=== PATIENT | male | born 1965 | race Caucasian/White ===

== ENCOUNTER → 2020-12-11 11:31 | Outpatient (BNVA) | payer MEDICAID, SELFPAY | PROVIDERS: Visit Provider Family Medicine | DX: K74.60 Unspecified cirrhosis of liver (principal); M25.512 Pain in left shoulder; M25.552 Pain in left hip; M25.572 Pain in left ankle and joints of left foot; M25.562 Pain in left knee; K58.9 Irritable bowel syndrome, unspecified; G89.4 Chronic pain syndrome; J44.9 Chronic obstructive pulmonary disease, unspecified; Z13.6 Encounter for screening for cardiovascular disorders | CPT/HCPCS: 73030; 73502; 73562; 73610; 80053; 80061; 85025 ==

== ENCOUNTER → 2021-02-04 12:56 | Outpatient (BNVA) | payer MEDICAID, SELFPAY | PROVIDERS: Referring Provider Family Medicine; Visit Provider Specialist | DX: M16.12 Unilateral primary osteoarthritis, left hip (principal); M25.552 Pain in left hip | CPT/HCPCS: 73502 ==

== ENCOUNTER → 2021-02-06 15:08 | Outpatient (BNVA) | payer MEDICAID, SELFPAY | PROVIDERS: Visit Provider Internal Medicine | DX: K74.60 Unspecified cirrhosis of liver (principal); F10.20 Alcohol dependence, uncomplicated | CPT/HCPCS: 80053; 82105; 86705; 86706; 86709; 86803; 87340 ==

== ENCOUNTER → 2021-02-20 10:29 | Outpatient (BNVA) | payer MEDICAID, SELFPAY | PROVIDERS: PCP Family Medicine; Referring Provider Specialist; Visit Provider Anesthesiology Pain Medicine | DX: M16.12 Unilateral primary osteoarthritis, left hip (principal); M47.816 Spondylosis without myelopathy or radiculopathy, lumbar region; M79.605 Pain in left leg; Z87.898 Personal history of other specified conditions; K74.60 Unspecified cirrhosis of liver; F10.20 Alcohol dependence, uncomplicated; F17.210 Nicotine dependence, cigarettes, uncomplicated | CPT/HCPCS: 99204 ==

== ENCOUNTER 2021-02-26 12:31 | Outpatient (CLI) | payer MEDICAID, SELFPAY ==
--- NOTE | 2021-02-26 13:00 | MR_ITS ---
WS: [id number] MRI LUMBAR SPINE NONCONTRAST HISTORY: M54.9 - Dorsalgia, unspecified COMPARISON: None available. TECHNIQUE: Sagittal and axial multisequence imaging is submitted. Mild anterior wedging of T12 without edema. Posterior lumbar alignment are otherwise normal. Disc spaces and vertebral body heights are well-preserved. Conus terminates normally at L1-2 disc level. T11-12: Central disc protrusion with mild deformity of the ventral thoracic cord. No high-grade steno sis. L1-L2: Mild annular disc bulging and ligamentum flavum hypertrophy. Mild bilateral foraminal stenosis . L2-L3: Mild annular disc bulge. Annular fissure in the LEFT foramen. Moderate facet joint arthritis a nd ligamentum flavum hypertrophy. Degenerative disc and facet arthritis causing a mild central, bilat eral subarticular and foraminal stenosis. L3-L4: Moderate annular disc bulging with ligamentum flavum hypertrophy and facet arthritis. Mild saira ateral subarticular recess stenosis. L4-L5: Diffuse annular disc bulging with fissures in the LEFT foraminal disc. Moderate ligamentum fla vum and facet arthritis. Mild bilateral subarticular recess stenosis. L5-S1: Mild annular disc bulging. Disc contacts the S1 nerve roots but no displacement. No high-grade stenosis. LEFT renal cyst measures 1.3 cm. MR/MR lumbar spine wo con* [id number] IMPRESSION: 1. Mild central, bilateral subarticular recess and foraminal stenosis at L2-3. 2. Mild bilateral subarticular recess stenosis at L3-4 and L4-5. 3. Mild disc contact in the S1 nerve roots bilaterally at L5-S1 but no displac ement. 4. Mild bilateral foraminal stenosis at L1-2. 5. Small central disc protrusion at T11-12 with mild contact on the ventral co rd.
== END 2021-02-26 12:32 | disposition home or self-care (01) ==
LOC: RADSHAW 12:32
PROVIDERS: PCP Family Medicine; Visit Provider Orthopaedic Surgery
DX: M48.061 Spinal stenosis, lumbar region without neurogenic claudication (principal); M51.24 Other intervertebral disc displacement, thoracic region
CPT/HCPCS: 72148

== ENCOUNTER 2021-02-26 12:32 | Outpatient (CLI) | payer MEDICAID, SELFPAY ==
--- NOTE | 2021-02-26 12:52 | MR_ITS ---
WS: [id number] MRI LEFT HIP without CONTRAST. COMPARISON: None Multiplanar, multisequence imaging is performed without contrast. There is a large amount of edema throughout the LEFT femoral head extending into the femoral neck and proximal femur. Severe narrowing of the LEFT hip joint. Loss of the hip joint and loss of cartilage. There is also small amount of edema along the LEFT acetabulum. No fracture is identified. No collaps e of the hip at this time. There are a few serpiginous line suggesting avascular necrosis. No fragmen tation. There is a very small amount of edema within the superior RIGHT acetabulum. SI joints are negative. MR/MR hip LT wo con* [id number] IMPRESSION: 1. Severe degenerative changes at the LEFT hip joint with marrow edema extendi ng in throughout the femoral head and neck. 2. Small amount of marrow edema both sides of the joint space LEFT hip. 3. 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
== END 2021-02-26 12:33 | disposition home or self-care (01) ==
LOC: RADSHAW 12:33
PROVIDERS: PCP Family Medicine; Visit Provider Specialist
DX: M16.12 Unilateral primary osteoarthritis, left hip (principal); R60.0 Localized edema
CPT/HCPCS: 72110; 73721

== ENCOUNTER → 2021-03-06 14:04 | Outpatient (BNVA) | payer MEDICAID, SELFPAY | PROVIDERS: PCP Family Medicine; Visit Provider Internal Medicine | DX: B19.20 Unspecified viral hepatitis C without hepatic coma (principal); B18.2 Chronic viral hepatitis C | CPT/HCPCS: 87522; 87902 ==

== ENCOUNTER → 2021-03-11 14:47 | Outpatient (BNVA) | payer MEDICAID, SELFPAY | PROVIDERS: PCP Family Medicine; Visit Provider Anesthesiology Pain Medicine | DX: M25.552 Pain in left hip (principal); M16.9 Osteoarthritis of hip, unspecified; F17.210 Nicotine dependence, cigarettes, uncomplicated | CPT/HCPCS: 20610; 77002; J1030; J3490 ==

== ENCOUNTER 2021-04-24 10:09 | Outpatient (CLI) | payer MEDICAID, SELFPAY ==
--- NOTE | 2021-04-24 10:17 | MR_ITS ---
WS: [id number] MRI ABDOMEN without CONTRAST. COMPARISON: None Multiplanar, multisequence imaging is performed without contrast. Patient refused IV contrast. Mild heterogeneity within the liver. The surface of the liver is normal. No nodularity or mass identi fied. The caudate lobe is not significantly enlarged nor is the LEFT lateral segment. No bile duct di latation. Gallbladder is normal. Pancreas is top normal size at 13.9 cm in length. Bilateral renal cy sts. The largest in the upper pole of the LEFT kidney measures 2.4 x 2.1 cm. There is an additional s maller cyst in the lower pole the LEFT kidney. No adrenal mass. No bile duct dilatation. The pancreas is normal size. Normal pancreatic duct size. No ascites. No pleural effusion. MR/MR abdomen wo con [id number] IMPRESSION: 1. No MRI evidence for cirrhosis. No enhancing masses within the liver. 2. Spleen is top normal size at 13.9 cm in length. 3. Bilateral renal cysts. 4. No ascites.
== END 2021-04-24 10:10 | disposition home or self-care (01) ==
PROVIDERS: PCP Family Medicine; Visit Provider Internal Medicine
DX: R76.8 Other specified abnormal immunological findings in serum (principal); Q61.02 Congenital multiple renal cysts; M47.816 Spondylosis without myelopathy or radiculopathy, lumbar region; M51.36 Other intervertebral disc degeneration, lumbar region; M51.16 Intervertebral disc disorders with radiculopathy, lumbar region; M16.12 Unilateral primary osteoarthritis, left hip; M79.605 Pain in left leg; K74.60 Unspecified cirrhosis of liver; F10.20 Alcohol dependence, uncomplicated; Z87.898 Personal history of other specified conditions; F17.210 Nicotine dependence, cigarettes, uncomplicated
CPT/HCPCS: 74181; 99214

== ENCOUNTER → 2021-05-06 12:59 | Outpatient (BNVA) | payer MEDICAID, SELFPAY | PROVIDERS: PCP Family Medicine; Visit Provider Anesthesiology Pain Medicine | DX: M48.062 Spinal stenosis, lumbar region with neurogenic claudication (principal); F17.210 Nicotine dependence, cigarettes, uncomplicated | CPT/HCPCS: 64483; 64484; J1100; J3490 ==

== ENCOUNTER → 2021-05-20 12:56 | Outpatient (BNVA) | payer MEDICAID, SELFPAY | PROVIDERS: PCP Family Medicine; Visit Provider Anesthesiology Pain Medicine | DX: M48.062 Spinal stenosis, lumbar region with neurogenic claudication (principal); F17.210 Nicotine dependence, cigarettes, uncomplicated | CPT/HCPCS: 64483; 64484; J1100; J3490 ==

== ENCOUNTER → 2021-06-14 10:49 | Outpatient (BNVA) | payer MEDICAID, SELFPAY | PROVIDERS: PCP Family Medicine; Visit Provider Internal Medicine | DX: B19.20 Unspecified viral hepatitis C without hepatic coma (principal) | CPT/HCPCS: 87522 ==

== ENCOUNTER → 2021-07-03 15:19 | Outpatient (BNVA) | payer MEDICAID, SELFPAY | PROVIDERS: PCP Family Medicine; Visit Provider Internal Medicine | DX: B19.20 Unspecified viral hepatitis C without hepatic coma (principal) | CPT/HCPCS: 80053; 87522 ==

== ENCOUNTER → 2021-11-27 10:30 | Outpatient (BNVA) | payer MEDICAID, SELFPAY | PROVIDERS: PCP Family Medicine; Visit Provider Anesthesiology Pain Medicine | DX: M79.605 Pain in left leg (principal); F17.210 Nicotine dependence, cigarettes, uncomplicated; M48.062 Spinal stenosis, lumbar region with neurogenic claudication; M16.12 Unilateral primary osteoarthritis, left hip; M47.816 Spondylosis without myelopathy or radiculopathy, lumbar region; F10.20 Alcohol dependence, uncomplicated; Z87.898 Personal history of other specified conditions; K74.60 Unspecified cirrhosis of liver; M51.36 Other intervertebral disc degeneration, lumbar region; M51.16 Intervertebral disc disorders with radiculopathy, lumbar region | CPT/HCPCS: 99214 ==

== ENCOUNTER → 2021-12-24 13:30 | Outpatient (BNVA) | payer MEDICAID, SELFPAY | PROVIDERS: PCP Family Medicine; Visit Provider Anesthesiology Pain Medicine | DX: F17.210 Nicotine dependence, cigarettes, uncomplicated (principal); M54.16 Radiculopathy, lumbar region; M48.062 Spinal stenosis, lumbar region with neurogenic claudication | CPT/HCPCS: 64483; 64484; J1100; J3490 ==

== ENCOUNTER → 2022-01-09 11:00 | Outpatient (BNVA) | payer MEDICAID, SELFPAY | PROVIDERS: PCP Family Medicine; Visit Provider Anesthesiology Pain Medicine | DX: M48.062 Spinal stenosis, lumbar region with neurogenic claudication (principal); M47.816 Spondylosis without myelopathy or radiculopathy, lumbar region; M51.16 Intervertebral disc disorders with radiculopathy, lumbar region; M51.36 Other intervertebral disc degeneration, lumbar region; M79.605 Pain in left leg; F17.210 Nicotine dependence, cigarettes, uncomplicated; M16.12 Unilateral primary osteoarthritis, left hip; Z87.898 Personal history of other specified conditions | CPT/HCPCS: 72110; 99204; 99214 ==

== ENCOUNTER 2022-02-07 06:47 | Day surgery (SDC) | payer MEDICAID, SELFPAY ==
[2022-02-03 09:52] VITALS: BMI 26.4
--- NOTE | 2022-02-03 10:17 | P.ANESASSM_ITS ---
Pre-Anesthetic Assessment Height/Weight: Height 1.65 m Weight 72.121 kg Preop Diagnosis: Lumbar radiculopathy Operation Date: 02/07/22 08:40 Proposed Procedures p Lumbar Spine Decompression L2/3 L3/4 25526/89110/M48.062(Left) - Homer Madsen DO Familial anesthetic complications: None Social Tobacco and No alcohol Exam alert, oriented x 3 and regular rate & rhythm Diminished b/l Airway Submandibular: within normal limits Cervical ROM: within normal limits Mallampati: Class III Dentition: false Pulmonary Denies asthma, COPD, TINO SOB with flight of stairs, no CP CV/HEM Denies HTN, CAD, stents, VA, CHF None reported Hepatic Cirrhosis and Hepatitis (C and B, cured for hepatitis C per patient ) Elevated alpha-fetoprotein AST, ALT normalized after treatment for hepatitis C in 2020 GI None reported Metabolic None reported Musc/skel Lower Back Pain and Osteoarthritis/DJD Neuropsych Neuropathy Denies hx of strokes Hx of ETOH withdraw seizure, no longer drinks ETOH Anesthetic Plan ASA status: 3 Anesthesia: Anesthesia Evaluation and General Other: We discussed risk and benefits of general anesthesia including PONV, sore throat (sometimes severe), corneal abrasion, positioning and peripheral nerve injuries, life threatening allergic reaction, post operative ICU admission requiring p rolonged intubation, aspiration, stroke, heart attack, , permanent blindness, and rare incidences of recall. Patient consents to proceed with general anesthesia. GETA, possible arterial line. Discussed transfusion if necessary. Risk of > 500 ml blood loss (7ml/kg in children): No Medications/Allergies Home Medications Medication Instructions Recorded Confirmed Last Taken Type tizanidine 2 mg tablet 2 mg PO TID PRN muscle spasticity 10/31/21 02/03/22 Unknown Rx 30 days #90 tabs celecoxib 200 mg capsule (Celebrex) 200 mg PO DAILY #30 caps 01/09/22 02/03/22 Unknown Rx pregabalin 150 mg capsule 150 mg PO TID 30 days #90 caps 01/27/22 02/03/22 Unknown Rx Allergies Allergy/AdvReac Type Severity Reaction Status Date / Time acetaminophen [From Tylenol] Allergy Intermediate Unknown Verified 02/03/22 09:46 REPLACED BY [facility] Anesthesia Medical History Advanced cirrhosis of liver Surgical History History of appendectomy Family History Father Cancer Social History Smoking and tobacco status: current every day smoker cigarettes Packs smoked per day: 2 Years cigarettes smoked: 40 Alcohol intake: former Year of sobriety/quit date alcohol: 11/21 History of recent travel: No Data Anesthesia Cardiac Studies: No Data to Display
[2022-02-07] VITALS (12 sets, daily range): BP systolic 101–136; BP diastolic 59–85; PULSE 60–87; RESP 14–22; TEMP 36.2–36.7; O2SAT 92–100
--- NOTE | 2022-02-07 | SCC_ITS ---
Procedure: 1. L2/3 laminectomy with partial facetectomy 2. L3/4 laminectomy with partial facetectomy 18.1 seconds of fluoroscopic guidance, for a cumulative dose of 5.0 mGy, was provided to Dr. Madsen by the radiology department. C-arm images of the lumbar spine were saved for the patient's permanent record. [facility]
--- NOTE | 2022-02-07 | XR_ITS ---
WS: [id number] XR lumbar spine 1V [id number] REASON FOR EXAM: Left-sided L2-L3 L3-L4 decompression FINDINGS: Initially surgical device overlying the left L2-L3 disc space and subsequently overlying the left L3- L4 disc space. XR/XR lumbar spine 1V [id number] IMPRESSION: Intraoperative lumbar level localization as above.
--- NOTE | 2022-02-07 06:13 | P.ANESUD_ITS ---
Pre-Anesthetic Update Pre-Anesthetic Assessment: Date of Surgery/Procedure: 02/07/22 Preop Elo gnosis: Lumbar radiculopathy Proposed Procedure: Operation Date: 02/07/22 08:40 Proposed Procedures p Lumbar Spine Decompression L2/3 L3/4 63449/97252/M48.062(Left) - Homer Madsen, DO Any changes to Pre-Anesthetic Assessment?: No Last Intake: 02/06/22 Exam: Pre-Anes Outpt Exam: alert, oriented x 3, clear to auscultation bilaterally and regular rate & rhythm Cardiac Studies: No Data to Display
[2022-02-07] MEDS: fentaNYL 50 mcg/mL INJ 2mL IVP (08:06)
[2022-02-07] MEDS: sodium chloride 0.9% 1,000 ML 30 ML IV (08:06)
--- NOTE | 2022-02-07 08:28 | W.PM.OPSUD ---
Surgery/Procedure H&P Update DATE OF PROCEDURE: February 07, 2022 DATE H&P PERFORMED: 01/27/22 H&P UPDATE INFORMATION: I have reviewed H&P completed within last 30 days, I have examined patient prior to procedure and No changes to prior documentation PREOP DIAGNOSIS: Lumbar radiculopathy PLANNED PROCEDURE: Operation Date: 02/07/22 08:40 Proposed Procedures p Lumbar Spine Decompression L2/3 L3/4 44684/45425/M48.062(Left) - Homer Madsen DO
[2022-02-07] MEDS: HYDROmorphone 1 mg/mL INJ 1 mL 0.5 MG IVP ×2 (08:34→10:25)
[2022-02-07] MEDS: ceFAZolin 2,000 MG in sodium chloride 0.9% (plus) 50 ML 100 MG IV (08:49)
--- NOTE | 2022-02-07 10:42 | P.OP_ITS ---
Operative Report Date of procedure: February 07, 2022 Pre-op diagnosis: Preop Diagnosis Lumbar stenosis with neurogenic claudication Post-op diagnosis: same Procedure done: 1. L2/3 laminectomy with partial facetectomy 2. L3/4 laminectomy with partial facetectomy Surgeon: Homer Madsen Staff Electronic Warfare Officer: Zackery Lema Staff Electronic Warfare Officer: The surgical aide, Zackery Lema, PAC was needed for his expertise under the microscope. He was important and necessary throughout the procedure to complete in a safe and timely manner. He assisted with patient positioning prepping and draping tissue retraction suctioning of the operative field protection of the dural sac and tissue closure Estimated blood loss (mL): 5 Procedure: 1. L2/3 laminectomy with partial facetectomy 2. L3/4 laminectomy with partial facetectomy Patient is brought to the operative suite. After undergoing anesthesia they are placed in the prone position. All areas of impingement are well padded. Patient is then prepped and draped in the normal sterile fashion. A skin incision is made over the L2/3 level. This is confirmed under c-arm guidance. A series of dilators are passed and the tubular retractor is docked on the L2 lamina. A bovie is used to clear the soft tissue off the lamina and the L 2/3 facet joint. A high speed maxim is then used to perform the laminectomy and take down the medial aspect of the L 2/3 facet joint. A kerrison rongeure was then used to take down the remaining lamina and smooth the edge of the laminectomy up to the point where the ligamentum flavum attaches. Attention was then brought to the medial aspect of the facet joint. The remaining medial aspect of the superior and inferior aspect of the facet joint were taken down with the kerrison from the pedicle of L2 to L 3. The facet joint had significant hypertrophy. Attention was then brought to the Ligamentum Flavum. The ligament was taken down from the lamina of L2 to L3 and out medially to the remaining facet joint. The ligament was thick. The dura was then exposed. The dura was in good repair. The L2 nerve was then traced with a curette out the L2/3 foramen and found to be adequately decompressed. The L3 nerve was traced with a curette around the L3 pedicle. The lateral recess was opened with a kerrison helping to further decompress the L3 nerve. Wound is then irrigated copiously with saline and surgiflo is used to stop any bleeding. The tubular retractor is removed and A skin incision is made over the L3/4 level. This is confirmed under c-arm guidance. A series of dilators are passed and the tubular retractor is docked on the L3 lamina. A bovie is used to clear the soft tissue off the lamina and the L 3/4 facet joint. A high speed maxim is then used to perform the laminectom y and take down the medial aspect of the L 3/4 facet joint. A kerrison rongeure was then used to take down the remaining lamina and smooth the edge of the laminectomy up to the point where the ligamentum flavum attaches. Attention was then brought to the medial aspect of the facet joint. The remaining medial aspect of the superior and inferior aspect of the facet joint were taken down with the kerrison from the pedicle of L3 to L 4. The facet joint had significant hypertrophy. Attention was then brought to the Ligamentum Flavum. The ligament was taken down from the lamina of L3 to L4 and out medially to the remaining facet joint. The ligament was thick. The dura was then exposed. The dura was in good repair. The L3 nerve was then traced with a curette out the L3/4 foramen and found to be adequately decompressed. The L4 nerve was traced with a curette around the L4 pedicle. The lateral recess was opened with a kerrison helping to further decompress the L4 nerve. Wound is then irrigated copiously with saline and surgiflo is used to stop any bleeding. The tubular retractor is removed and the wound is closed with vicryl and monocryl suture. Glue is then used to protect the wound. A sterile dressing is then placed. Patient was then placed in the supine position and transferred to the PACU in stable condition.
[2022-02-07] MEDS: oxyCODONE 5 mg IR Tab/Cap PO (11:40)
--- NOTE | 2022-02-07 14:47 | ANE.PACU2 ---
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
== END 2022-02-07 11:50 | disposition home or self-care (01) ==
PROVIDERS: PCP Family Medicine; Visit Provider Orthopaedic Surgery
PROC: (CPT 63005; principal; 2022-02-07 08:30)
DX: M48.062 Spinal stenosis, lumbar region with neurogenic claudication (principal); F17.210 Nicotine dependence, cigarettes, uncomplicated; Z86.19 Personal history of other infectious and parasitic diseases
CPT/HCPCS: 63047; 63048; 72020; 76000; J1100; J1170; J2250; J2370; J2405; J2704; J3010; J3490; J7030

== ENCOUNTER → 2022-02-18 08:26 | Outpatient (BNVA) | payer MEDICAID, SELFPAY | PROVIDERS: PCP Family Medicine; Visit Provider Orthopaedic Surgery | DX: Z47.89 Encounter for other orthopedic aftercare (principal) | CPT/HCPCS: 99024 ==

== ENCOUNTER → 2022-03-18 13:30 | Outpatient (BNVA) | payer MEDICAID, SELFPAY | PROVIDERS: PCP Family Medicine; Visit Provider Orthopaedic Surgery | DX: Z47.89 Encounter for other orthopedic aftercare (principal) | CPT/HCPCS: 99024; 99212 ==

== ENCOUNTER → 2022-04-14 09:22 | Outpatient (BNVA) | payer MEDICAID, SELFPAY | PROVIDERS: PCP Family Medicine; Visit Provider Specialist | DX: M16.12 Unilateral primary osteoarthritis, left hip (principal); M87.052 Idiopathic aseptic necrosis of left femur | CPT/HCPCS: 73502; 99204 ==

== ENCOUNTER 2022-04-22 14:38 | Observation (INO) | payer MEDICAID, SELFPAY ==
[2022-04-15 08:15] VITALS: BMI 28.1
--- NOTE | 2022-04-15 08:39 | P.ANESASSM_ITS ---
Pre-Anesthetic Assessment Height/Weight: Height 1.65 m Weight 76.657 kg Preop Diagnosis: Lumbar radiculopathy Operation Date: 04/22/22 10:35 Proposed Procedures p LEFT TOTAL HIP ARTHROPLASTY 99694 M16.12,M87.052(Left) - Kathleen Faustin MD Familial anesthetic complications: none Social Tobacco and No alcohol previous ETOH Exam alert, oriented x 3, clear to auscultation bilaterally and regular rate & rhythm Airway Mallampati: Class II Dentition: other (no teeth) Pulmonary None reported CV/HEM None reported None reported Hepatic Cirrhosis and Hepatitis (hep C and B (cured hep C)) Neuropsych Seizure (d/t etoh withdrawal) Anesthetic Plan ASA status: 3 Anesthesia: Regional (specify below) Other: spinal Risk of > 500 ml blood loss (7ml/kg in children): Yes, adequate IV access and fluids planned Medications/Allergies Home Medications Medication Instructions Recorded Confirmed Last Taken Type pregabalin 150 mg capsule (Lyrica) 150 mg PO TID 02/06/22 04/15/22 04/15/22 History tramadol 50 mg tablet 50 - 100 mg PO Q8H PRN pain 7 days 04/14/22 04/15/22 04/15/22 Rx #30 tabs tizanidine 2 mg tablet 2 mg PO TID 04/15/22 04/15/22 04/15/22 History Allergies Allergy/AdvReac Type Severity Reaction Status Date / Time acetaminophen [From Tylenol] Allergy Intermediate Unknown Verified 04/14/22 08:48 [facility] Anesthesia Medical History Advanced cirrhosis of liver Surgical History History of appendectomy Family History Father Cancer Social History Smoking and tobacco status: current every day smoker cigarettes Packs smoked per day: 2 Years cigarettes smoked: 40 Alcohol intake: former Year of sobriety/quit date alcohol: 11/21 History of recent travel: No Data Anesthesia Cardiac Studies: No Data to Display
[2022-04-15 09:11] LABS: Add Urine Microscopic? NO; Charge for UA Resulting for Rev
[2022-04-15 09:18] LABS: Bilirubin Urine Neg (Negative); Blood Urine Neg (Negative); Glucose Urine UA Norm (Normal); Nitrate Urine Negative (Negative); Protein Urine Neg (Negative); Specific Gravity, Urine 1.025 (1.005-1.030); Urine Appearance Clear (CLEAR); Urine Color Yellow (Yellow); pH Urine 6 (5-7)
[2022-04-15 09:19] LABS: Ketones Urine 1+ (Negative); Leukocyte Esterase Urine Negative (Negative); Urobilinogen Urine Norm (Negative)
[2022-04-15 09:24] LABS: Basophils # 0.1 10^3/uL (0.0-0.1); Basophils % 0.8 %; Eosinophils # 0.2 10^3/uL (0.0-0.8); Hematocrit 47.1 % (42.0-52.0); Hemoglobin 15.8 g/dL (11.7-16.6); Lymphocytes # 2.2 10^3/uL (0.8-4.8); Lymphocytes % 35.6 %; Mean Corpuscular HGB Conc 33.5 g/dL (30.0-36.0); Mean Corpuscular Hemoglobin 29.3 pg (28.0-34.0); Mean Corpuscular Volume 87.4 fl (80-94); Mean Platelet Volume 11.6 fL (7.4-10.4); Monocytes # 0.5 10^3/uL (0.2-0.9); Monocytes % 8.1 %; Neutrophils # 3.28 10^3/uL (1.8-7.7); Neutrophils % 52.2 %; Nucleated Red Blood Cells % 0 %; Platelet Count 144 10^3/cmm (130-400); Red Blood Count 5.39 10^6/uL (4.1-5.3); Red Cell Distribution Width 13.2 % (12.1-15.1); White Blood Count 6.3 10^3/uL (4.0-10.0)
[2022-04-15 09:31] LABS: Alanine Aminotransferase 8 U/L (0-41); Albumin Level 4.6 g/dL (3.5-5.2); Alkaline Phosphatase 76 U/L (40-130); Anion Gap 14.2 (5-19); Aspartate Amino Transferase 18 U/L (0-40); Blood Urea Nitrogen 14 mg/dL (6-20); Calcium 9.6 mg/dL (8.5-10.5); Carbon Dioxide 27 mmol/L (22-29); Chloride 101 mmol/L (98-107); Globulin 2.9 g/dL (1.3-4.6); Glomerular Filtration Rate 99.6 mL/min (90-130); Glucose 96 mg/dL (65-115); Osmolality Calculated 286 mOsm/kg (285-295); Potassium 4.2 mmol/L (3.5-5.1); Sodium 138 mmol/L (136-145); Total Bilirubin 0.4 mg/dL (0.15-1.2); Total Protein 7.5 g/dL (6.6-8.7)
[2022-04-22] VITALS (33 sets, daily range): BP systolic 96–143; BP diastolic 57–95; PULSE 56–112; RESP 11–20; TEMP 36.1–37.4; O2SAT 92–99; BMI 28.1
--- NOTE | 2022-04-22 06:58 | P.HPUD_ITS ---
Surgery/Procedure H&P Update DATE OF PROCEDURE: April 22, 2022 DATE H&P PERFORMED: 04/14/22 H&P UPDATE INFORMATION: I have reviewed H&P completed within last 30 days, I have examined patient prior to procedure, No changes to prior documentation and H&P is in [facility] EMR on date indicated PREOP DIAGNOSIS: Severe degenerative osteoarthritis left hip with avascular necrosis PLANNED PROCEDURE: Operation Date: 04/22/22 07:00 Proposed Procedures p LEFT TOTAL HIP ARTHROPLASTY 36227 M16.12,M87.052(Left) - Kathleen Faustin MD Related Problem List Diagnoses (1) Primary osteoarthritis of left hip:
[2022-04-22] MEDS: sodium chloride 0.9% 1,000 ML 30 ML IV (07:00)
[2022-04-22] MEDS: ceFAZolin 2,000 MG in sodium chloride 0.9% (plus) 50 ML 100 MG IV ×3 (07:00→23:59)
[2022-04-22] MEDS: CELEcoxib 200 mg Capsule 400 MG PO (07:00)
--- NOTE | 2022-04-22 07:31 | P.ANESUD_ITS ---
Pre-Anesthetic Update Pre-Anesthetic Assessment: Date of Surgery/Procedure: 04/22/22 Preop Elo gnosis: Severe degenerative osteoarthritis left hip with avascular necrosis Proposed Procedure: Operation Date: 04/22/22 07:00 Proposed Procedures p LEFT TOTAL HIP ARTHROPLASTY 37818 M16.12,M87.052(Left) - Kathleen Faustin MD Any changes to Pre-Anesthetic Assessment?: No Last Intake: Intake Last Liquid Date 04/21/22 Last Liquid Time 22:00 Last Solid Date 04/21/22 Last Solid Time 22:00 Vitals: Temperature 97.3 F L 04/22/22 05:58 Temperature Source Temporal Artery S can 04/22/22 05:58 Pulse Rate 56 L 04/22/22 05:58 Respiratory Rate 18 04/22/22 05:58 Blood Pressure 115/74 04/22/22 05:58 Blood Pressure Dawn n 87 04/22/22 05:58 Pulse Oximetry 98 04/22/22 05:58 Oxygen Delivery Me thod 04/22/22 06:27 Exam: Pre-Anes Outpt Exam: alert, oriented x 3, clear to auscultation bilaterally and regular rate & rhythm Cardiac Studies: No Data to Display
[2022-04-22] MEDS: ceFAZolin 1,000 mg SDV 2000 MG IRRIGATION (08:00)
[2022-04-22] MEDS: vancomycin 1,000 MG SDV 1000 MG XX (08:00)
[2022-04-22] MEDS: tranexamic acid 1,000 mg/10mL SDV 1000 MG IV (08:01)
[2022-04-22] MEDS: fentaNYL 50 mcg/mL INJ 2mL IVP ×2 (09:56→10:13)
--- NOTE | 2022-04-22 10:06 | XR_ITS ---
WS: [id number] PELVIS: AP VIEW SUBMITTED HISTORY: Postop. COMPARISON: 04/14/2022 Status post LEFT total hip arthroplasty. Postoperative changes within the soft tissues from the recen t hip replacement. No fractures. Normal alignment. Mild narrowing of the RIGHT hip joint. Osteopenia. XR/XR pelvis min 3V [id number] IMPRESSION: Status post LEFT hip arthroplasty. Postoperative changes in the soft tissues. N o complications are apparent.
--- NOTE | 2022-04-22 10:07 | PM.OP ---
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 Procedure done: Left total hip arthroplasty Implants: The [employer] total hip system with the following implants: A 56 mm by F Trident II solid back acetabular shell, an MDM cementless liner 46 mm inner diameter by F alpha code and Accolade II size 7 with 127 degree neck angle hip stem with a 28 mm outer diameter -2.7 mm neck offset and a advent X3 insert size 28 mm inner diameter by 46F ? Specimens removed/disposition: Femoral head to pathology for microscopic evaluation Surgeon: Kathleen Faustin Commercial Service Technician: [facility] operating room technicians Anesthesia: General (Intubated, ASA 3) Estimated blood loss (mL): 400 IV fluids (mL): 1,000 Urine output (mL): 200 Complications: None Findings: Severe degenerative osteoarthritis of the hip with signs of avascular necrosis and femoral head collapse. Hip was stable at 90 degrees of flexion with 80 degrees of internal rotation and 30 degrees of adduction. It was also stable to external rotation and to toe hang. Condition: stable Disposition: PACU (Then to floor for postoperative rehabilitation and pain management) Brief History: This is an established 57 year old male patient presenting today for left total hip arthroplasty. Patient states that the hip continues to be painful, and it affects his daily activities. Patient is here today to discuss his MRI. Patient had a ?L2-3, L3-4 lumbar decompression. DOS:02/07/22. with Dr. Madsen. Patient states that this helped many of his symptoms and has been a success other than he still continues to have pain with weight bearing which he feels is secondary to the hip. After evaluation in the office, the patient was found to have severe femoral head collapse and shortening. This was consistent with his avascular necrosis. Patient was scheduled for operative intervention in the form of total hip arthroplasty. Risks and complications were discussed, and consents were signed. Procedure: Patient was brought to the operating theater.? He was transferred to the operating room table.? The patient had a general anesthetic intubated, ASA 3 uneventfully.? Following administration of adequate anesthesia, the patient was placed in full lateral position and held in position with a pegboard.? The patient's left lower extremity was then prepped and draped in usual fashion utilizing DuraPrep.? It was draped free.? Following prepping and draping, a surgical pause was performed. At the time of surgical pause, we identified the site and side of surgery.? We also identified the patient and preoperative surgical markings.? Confirmation was made of equipment availability.? Additionally, the patient's preoperative IV antibiotic, Ancef 2 g was confirmed as being given in a timely fashion and being the appropriate antibiotic.? She received TXA 1 g preoperatively as well 1 g postoperatively. Following the surgical pause, an incision was made centering over the patient's greater trochanter continuing proximally and distally as necessary to allow access to the hip joint.? Dissection continued through skin and soft tissues using a scalpel, and hemostasis was obtained using electrocautery. The tensor fascia surya was identified and incised longitudinally.? Sciatic nerve was identified and protected throughout the surgical procedure.? A Charnley U retractor was placed after the tensor fascia surya had been incised longitudinally, and the sciatic nerve had been identified.? The piriformis muscle was identified and tagged. Piriformis muscle along with the remaining short external rotators were then incised from the posterior aspect of the hip joint. These were retracted posteriorly. ? The capsule was entered in a T-type fashion with the edges being tagged.? The hip was then dislocated.? The head was noted to be very deformed with significant loss of bone and cartilage.? There was significant collapse and it was very misshapened.? Following hip dislocation, a femoral neck osteotomy was accomplished in the appropriate position.? The femoral head was sent to pathology for further evaluation.? We then evaluated the acetabulum. Following femoral neck osteotomy, the femur was retracted anteriorly.? Soft tissues were retracted, and the labrum was removed.? Soft tissues were removed from within the acetabulum prior to the reaming process.? We then began reaming.? We deepened the acetabulum utilizing a smaller reamer.? Evaluation of the acetabulum was accomplished, and we were able to ream to 55 mm to allow for a size 56 mm acetabular shell. The acetabular component was impacted into position.? It was noted that the acetabular component matched the bony anatomy.? The MDM cementless liner was impacted into position and care was taken to assure that it completely seated.? Attention was directed to the proximal femur.? The proximal femur was lifted out of the wound with difficulty.? A canal finder was passed, and we then used the reamer to lateralize.? We then began broaching. We broached sequentially and a size 7 gave excellent fit and fill.? With the size 7 broach, trial reduction was accomplished initially with a size +0 mm offset femoral head.? The patient was stable with this construct, but it was felt that the leg was slightly lengthened.? Therefore, we trialed with a -2.7 mm offset femoral head.? With this in place, we had the above stabilities, and at that time, we felt that we had restored normal leg lengths.? We also felt that we had excellent stability noted above. Therefore, trial components were removed after the hip was dislocated.? The size 7 Accolade II 127 degree neck angle hip stem was impacted into position without difficulty and onto this was placed a -2.7 mm offset by 28 mm outer diameter femoral head inside of the MDM size 46F insert with a 28 mm inner diameter.? With this construct, we had the above-noted stability.? The stem was noted to seat nicely prior to placement of the femoral head.? The wound was copiously irrigated with Betadine.? At this time, with all components in appropriate position, the hip was reduced.? Following reduction of the prosthesis once again, we confirmed the stability of the hip.? Leg lengths were also felt to be satisfactory. Being satisfied with the prosthesis, attention was directed to closure.? Closure was accomplished with 0 Vicryl in the capsular tissues.? Piriformis was reattached with 0 Vicryl as well.? Tensor fascia surya was closed with 0 Vicryl in an interrupted fashion.? The subcutaneous tissues were closed with 2-0 Monocryl.? Vancomycin powder and a Gelfoam thrombin mixture was placed into the wound as well.? The skin was closed with 3-0 Monocryl followed by Dermabond, Prineo, and OpSite.? The patient was placed in an abduction pillow.?The patient was then rolled onto his back.? The adductor was evaluated, and it was felt to be of equal tightness to the opposite hip. He e was returned the Recovery Room in a satisfactory condition and will be discharged to the floor for postoperative rehabilitation and pain management.? There were no complications. Related Problem List Diagnoses (1) Primary osteoarthritis of left hip:
[2022-04-22] MEDS: HYDROmorphone 1 mg/mL INJ 1 mL 0.5 MG IVP ×3 (10:28→14:13)
--- NOTE | 2022-04-22 11:12 | PC.NURSE ---
patient was taken to obs for holding. Patient stated pain level of 10 is the best he has been in a long time.
[2022-04-22] MEDS: oxyCODONE 5 mg IR Tab/Cap PO ×3 (11:22→22:51)
[2022-04-22] MEDS: morphine 4 mg/mL SDV 1 mL 2 MG IVP (12:42)
--- NOTE | 2022-04-22 14:45 | ANE.PACU2 ---
Inpatient post-anesthesia follow up: Airway intact: Yes Vital signs: Temperature 98.1 F Pulse Rate 98 Respiratory Rate 18 Blood Pressure 114/71 Pulse Oximetry 92 Oxygen Delivery Me thod Room Air Oxygen Flow Rate 8 Fraction of Inspir ed Oxygen Hydration adequate: Yes Nausea and vomiting: No Pain level: 4 Mental status: Baseline
[2022-04-22] MEDS: sennosides-docusate Tablet 2 TAB PO (17:00)
[2022-04-22] MEDS: pregabalin 150 mg Capsule PO ×2 (17:01→20:29)
[2022-04-22] MEDS: iron polysaccharide complex 150 mg Capsule PO (17:01)
[2022-04-22] MEDS: CELEcoxib 200 mg Capsule PO (17:01)
[2022-04-22] MEDS: calcium carbonate 500 mg Chew Tablet 1000 MG PO (17:02)
[2022-04-22] MEDS: chlorhexidine gluconate 0.12% Btl 473 mL 30 ML MUCOUS MEM ×3 (17:02→20:30)
[2022-04-22] MEDS: mupirocin oint 22 gm 1 APPLIC NASAL (17:03)
[2022-04-22] MEDS: TRAMadol 50 mg Tablet PO (20:28)
[2022-04-22] MEDS: tizanidine 4 mg Tablet 2 MG PO (20:29)
[2022-04-23] MEDS: CELEcoxib 200 mg Capsule PO ×2 (03:05→14:22)
[2022-04-23 03:44] VITALS: RESP 16
[2022-04-23] MEDS: oxyCODONE 5 mg IR Tab/Cap PO ×3 (03:44→14:23)
[2022-04-23 05:05] LABS: Basophils % 0.1 %; Hematocrit 40.2 % (42.0-52.0); Hemoglobin 13.5 g/dL (11.7-16.6); Lymphocytes # 1.3 10^3/uL (0.8-4.8); Lymphocytes % 10.9 %; Mean Corpuscular HGB Conc 33.6 g/dL (30.0-36.0); Mean Corpuscular Hemoglobin 29.6 pg (28.0-34.0); Mean Corpuscular Volume 88.2 fl (80-94); Mean Platelet Volume 11.7 fL (7.4-10.4); Monocytes # 0.9 10^3/uL (0.2-0.9); Monocytes % 7.4 %; Neutrophils # 9.82 10^3/uL (1.8-7.7); Neutrophils % 80.9 %; Nucleated Red Blood Cells % 0 %; Platelet Count 121 10^3/cmm (130-400); Red Blood Count 4.56 10^6/uL (4.1-5.3); Red Cell Distribution Width 13.2 % (12.1-15.1); White Blood Count 12.1 10^3/uL (4.0-10.0)
[2022-04-23 05:24] LABS: Anion Gap 13.6 (5-19); Blood Urea Nitrogen 15 mg/dL (6-20); Calcium 8.9 mg/dL (8.5-10.5); Carbon Dioxide 25 mmol/L (22-29); Chloride 103 mmol/L (98-107); Glomerular Filtration Rate 99.6 mL/min (90-130); Glucose 143 mg/dL (65-115); Osmolality Calculated 287 mOsm/kg (285-295); Potassium 4.6 mmol/L (3.5-5.1); Sodium 137 mmol/L (136-145)
[2022-04-23] MEDS: ceFAZolin 2,000 MG in sodium chloride 0.9% (plus) 50 ML 100 MG IV (06:04)
[2022-04-23 07:42] VITALS: BP 110/67; PULSE 74; RESP 16; TEMP 36.9; O2SAT 94
[2022-04-23] MEDS: cholecalciferol (vitamin D3) 1,000 unit Tablet 1000 UNIT PO (08:37)
[2022-04-23] MEDS: aspirin 325 mg EC Tablet PO (08:37)
[2022-04-23] MEDS: sennosides-docusate Tablet 2 TAB PO (08:37)
[2022-04-23] MEDS: calcium carbonate 500 mg Chew Tablet 1000 MG PO (08:37)
[2022-04-23] MEDS: multivitamin therapeutic Tablet 1 TAB PO (08:37)
[2022-04-23] MEDS: tizanidine 4 mg Tablet 2 MG PO ×2 (08:37→14:21)
[2022-04-23] MEDS: iron polysaccharide complex 150 mg Capsule PO (08:38)
[2022-04-23] MEDS: chlorhexidine gluconate 0.12% Btl 473 mL 30 ML MUCOUS MEM ×2 (08:38→14:22)
[2022-04-23] MEDS: pregabalin 150 mg Capsule PO ×2 (08:38→14:22)
[2022-04-23] MEDS: mupirocin oint 22 gm 1 APPLIC NASAL (08:38)
[2022-04-23 08:47] VITALS: RESP 18
[2022-04-23 11:54] VITALS: BP 113/57; PULSE 73; RESP 17; TEMP 36.7; O2SAT 95
--- NOTE | 2022-04-23 12:48 | PC.CHAP ---
Pastoral Care Encounter/Spiritual Assessment Type of Contact [] Declined scoring machine operator visit [] Patient/Family/Request visit [] Outpatient visit [] Follow-up visit [] Physician referral [] Code/Alert [x] Routine visit [] Staff referral [] Actively dying [] Patient sleeping [] Family support [] [] Out of room [] Palliative care [] [] Receiving care in room [] Pre-surgical visit [] Trauma [] Long length of stay [] ICU visit [] Other: Relational/Emotional Strength [x] Patient feels connected with others/family/visitors/staff [] Distress [] Loneliness/isolation [] Abandonment Spirituality of Patient [x] Person of Sheri [] Attends Orthodox of their Sheri [x Believes in Prayer [x] Reads Bible or Judaism materials [] There are Spiritual issues to be addressed Director Of Government Sales Interventions [x] Prayer [x] Active listening [x] Non-anxious presence [x] Spiritual/emotional support [] Crisis/trauma care [] Spiritual counseling [] Bereavement support [] Provided bereavement packet [] Provided Bible/devotional materials [] Provided toy/stuffed animal, coloring book to patient or family member [] Provided Communion [] Anointing/[place] [] Salvation xx[]x Completed spiritual assessment [] Other: Impact on Illness or Injury [] Angry [] Fearful [] Anxious [] Often cries [] Exhaustion [] Unable to work [] Unable to attend denominational [] Unable to walk/stand [] Unable to read [] Unable to drive [] Unable to eat/drink [] Unable to sleep [] Unable to be with family [] Patient intubated [] Other: Summary Time spent with patient 10 min
[2022-04-23 14:23] VITALS: RESP 18
--- NOTE | 2022-04-23 15:56 | P.DS_ITS ---
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 Patient states that the hip continues to be painful, and it affects his daily activities. Patient is here today to discuss his MRI. Patient had a ?L2-3, L3-4 lumbar decompression. DOS:02/07/22. with Dr. Madsen. Patient states that this helped many of his symptoms and has been a success other than he still continues to have pain with weight bearing which he feels is secondary to the hip.? After evaluation in the office, the patient was found to have severe femoral head collapse and shortening.? This was consistent with his avascular necrosis.? Patient was scheduled for operative intervention in the form of total hip arthroplasty.? Risks and complications were discussed, and consents were signed. Hospital Course Hospital Course This 57-year-old gentleman presented for same-day surgery in the form of left total hip arthroplasty. He had severe deformity and significant inability to ambulate. The patient underwent the total hip arthroplasty uneventfully. Subsequently, he was admitted to the hospital under observation status for postoperative pain management and rehabilitation. On the first postoperative day, he was working with therapy. In fact, he did not want use a walker he wanted to use a cane. He was ready for discharge to home. His dressing was dry. His thigh was not swollen. He was neurologically intact with no evidence of DVT. Patient was discharged home to follow-up with me in the office as scheduled. Physical Exam Const: COMMON NORMALS: no acute distress, average body habitus, patient oriented x3 and alert GENERAL APPEARANCE: cooperative and comfortable ORIENTATION/CONSCIOUSNESS: Yes awake HENMT: COMMON NORMALS: normocephalic and atraumatic HEAD & SCALP: normocephalic and atraumatic Eye: GENERAL EYE: appearance normal, both eyes and all related structures Chest: COMMONS NORMALS: normal inspection of the chest Resp: COMMON NORMALS: normal respiratory effort EFFORT & INSPECTION: Yes able to speak in complete sentences and Yes symmetric chest movement Neuro: COMMON NORMALS: patient oriented x3 SENSORIUM/ORIENTATION: Yes alert Psych: COMMON NORMALS: mental status grossly normal APPEARANCE: Yes grossly normal ATTITUDE: Yes calm and Yes engaged ATTENTION/CONCENTRATION: Yes attention grossly intact Skin: COMMON NORMALS: no rashes or lesions noted GENERAL SKIN EXAM: no rashes or lesions noted Urinary Catheter Management: Melendez: Cath Placed During This Visit: yes, but has since been removed by the nurse Reason for Continuing Indwelling Catheter: Decision to DC Catheter Urinary Catheter Date of Insertion: 04/22/22 Urinary Catheter Time of Insertion: 07:10 Date Urinary Catheter Removed: 04/23/22 Time Urinary Catheter Discontinued: 06:10 Discharge Data Studies Completed and Pending Completed Studies During Hospitalization Category Date Time Status XR pelvis min 3V [id number] Routine Exams 04/22/22 10:06 Completed Pending at discharge Category Date Time Status Pathology: Surgical [PTH] Routine Pth 04/22/22 09:10 Received Radiology Impressions Pelvis X-Ray 04/22/22 10:06 IMPRESSION: Status post LEFT hip arthroplasty. Postoperative changes in the soft tissues. No complications are apparent. Laboratory Results WBC 12.1 10^3/uL (4.0-10.0) H 04/23/22 04:37 RBC 4.56 10^6/uL (4.1-5.3) 04/23/22 04:37 Hgb 13.5 g/dL (11.7-16.6) 04/23/22 04:37 Hct 40.2 % (42.0-52.0) L 04/23/22 04:37 MCV 88.2 fl (80-94) 04/23/22 04:37 MCH 29.6 pg (28.0-34.0) 04/23/22 04:37 MCHC 33.6 g/dL (30.0-36.0) 04/23/22 04:37 RDW 13.2 % (12.1-15.1) 04/23/22 04:37 Plt Count 121 10^3/cmm (130-400) L 04/23/22 04:37 MPV 11.7 fL (7.4-10.4) H 04/23/22 04:37 Neut % (Auto) 80.9 % 04/23/22 04:37 Lymph % (Auto) 10.9 % 04/23/22 04:37 [place] % (Auto) 7.4 % 04/23/22 04:37 Eos % (Auto) 0.0 % 04/23/22 04:37 Baso % (Auto) 0.1 % 04/23/22 04:37 Neut # (Auto) 9.82 10^3/uL (1.8-7.7) H 04/23/22 04:37 Lymph # (Auto) 1.3 10^3/uL (0.8-4.8) 04/23/22 04:37 [place] # (Auto) 0.9 10^3/uL (0.2-0.9) 04/23/22 04:37 Eos # (Auto) 0.0 10^3/uL (0.0-0.8) 04/23/22 04:37 Baso # (Auto) 0.0 10^3/uL (0.0-0.1) 04/23/22 04:37 Nucleated RBC % (auto) 0 % 04/23/22 04:37 Nucleated RBCs # 0.0 /100WBC 04/23/22 04:37 Sodium 137 mmol/L (136-145) 04/23/22 04:37 Potassium 4.6 mmol/L (3.5-5.1) 04/23/22 04:37 Chloride 103 mmol/L (98-107) 04/23/22 04:37 Carbon Dioxide 25 mmol/L (22-29) 04/23/22 04:37 Anion Gap 13.6 (5-19) 04/23/22 04:37 BUN 15 mg/dL (6-20) 04/23/22 04:37 Creatinine 0.8 mg/dL (0.7-1.2) 04/23/22 04:37 GFR Calculation 99.6 mL/min (90-130) 04/23/22 04:37 Glucose 143 mg/dL (65-115) H 04/23/22 04:37 Calculated Osmolality 287 mOsm/kg (285-295) 04/23/22 04:37 Calcium 8.9 mg/dL (8.5-10.5) 04/23/22 04:37 Total Bilirubin 0.4 mg/dL (0.15-1.2) 04/15/22 08:30 AST 18 U/L (0-40) 04/15/22 08:30 ALT 8 U/L (0-41) 04/15/22 08:30 Alkaline Phosphatase 76 U/L (40-130) 04/15/22 08:30 Total Protein 7.5 g/dL (6.6-8.7) 04/15/22 08:30 Albumin 4.6 g/dL (3.5-5.2) 04/15/22 08:30 Globulin 2.9 g/dL (1.3-4.6) 04/15/22 08:30 Urine Color Yellow (Yellow) 04/15/22 08:33 Urine Appearance Clear (CLEAR) 04/15/22 08:33 Urine pH 6 (5-7) 04/15/22 08:33 Ur Specific [place] 1.025 (1.005-1.030) 04/15/22 08:33 Urine Protein Neg (Negative) 04/15/22 08:33 Urine Glucose (UA) Norm (Normal) 04/15/22 08:33 Urine Ketones 1+ (Negative) H 04/15/22 08:33 Urine Blood Neg (Negative) 04/15/22 08:33 Urine Nitrate Negative (Negative) 04/15/22 08:33 Urine Bilirubin Neg (Negative) 04/15/22 08:33 Urine Urobilinogen Norm mg/dL (Negative) 04/15/22 08:33 Ur Leukocyte Esterase Negative (Negative) 04/15/22 08:33 Vitals Last Vital Signs Temp 98.0 F 04/23/22 11:54 Pulse 73 04/23/22 11:54 Resp 18 04/23/22 14:23 BP 113/57 04/23/22 11:54 Pulse Ox 95 04/23/22 11:54 O2 Del Method 04/23/22 11:54 O2 Flow Rate 8 04/22/22 09:48 Discharge Plan Discharge Patient Disposition: Home Condition: Stable Prescriptions: New oxycodone 5 mg Tablet 5 mg PO Q4H PRN (Reason: Moderate Pain) 7 Days Qty: 30 0RF aspirin 325 mg Tablet,Delayed Release (Dr/Ec) 325 mg PO DAILY 30 Days Qty: 30 0RF celecoxib 200 mg Capsule 200 mg PO 1XD 30 Days Qty: 30 0RF Continued tramadol 50 mg tablet 50 - 100 mg PO Q8H PRN (Reason: pain) 7 Days Qty: 30 0RF pregabalin [Lyrica] 150 mg capsule 150 mg PO TID Rx Instructions: FOR NERVE PAIN tizanidine 2 mg tablet 2 mg PO TID Rx Instructions: TAKE ONE TABLET BY MOUTH THREE TIMES A DAY NEEDED FOR MUSCLE SPASTICITY FOR 30 DAYS Discharge Orders: Discharge Order (Routine); Ordered 04/23/22 Ordered By: Kathleen Faustin Other Ambulatory Orders: DME: Walker (Order) Location: None Selected Ordered By: Kathleen Faustin Referrals: Kathleen Faustin MD [Physician] - 05/06/22 1:30 pm Discharge Diet: Advance as tolerated and Usual diet Discharge Activity: Increase activity as tolerated, Limit activity as instructed and Use walker/crutches as instructed Patient Instructions: Oxycodone/Acetaminophen (By mouth), Aspirin (By mouth), Celecoxib (By mouth), Total Hip Replacement (GEN), Opioid Safety Activity Restrictions/Additional Instructions: Posterior hip precautions. Weightbearing as tolerated. Gait training, ambulation, and range of motion per physical therapy. Ice to left hip. Discharge Attestations Time Spent in Discharge Care*: greater than 30 min Quality Metrics Clinical Quality Measures [ No reported AMI, CVA or VTE this stay] Coding Level of Care Code Acute Chg FW DC note Diagnoses Primary osteoarthritis of left hip M16.12 Status post total hip replacement, left Z96.642
[2022-04-23 16:41] VITALS: BP 101/68; PULSE 81; RESP 17; TEMP 36.8; O2SAT 97
== END 2022-04-23 16:43 | disposition home or self-care (01) ==
LOC: MEDSURG 14:38
PROVIDERS: Admitting Provider Specialist; PCP Family Medicine; Visit Provider Specialist
PROC: (CPT 27130; principal; 2022-04-22 07:00)
DX: M16.12 Unilateral primary osteoarthritis, left hip (principal); F17.210 Nicotine dependence, cigarettes, uncomplicated
CPT/HCPCS: 27130; 36415; 51702; 72190; 80048; 80053; 81003; 85025; 88304; 88311; 97116; 97161; 97165; 97530; A9281; C1776; G0378; J0690; J1100; J1170; J2270; J2370; J2405; J2704; J3010; J3370; J3490; J7030; P9045

== ENCOUNTER → 2022-05-06 13:05 | Outpatient (BNVA) | payer MEDICAID, SELFPAY | PROVIDERS: PCP Family Medicine; Visit Provider Nurse Practitioner Family | DX: Z96.642 Presence of left artificial hip joint (principal) | CPT/HCPCS: 73502; 99024 ==

== ENCOUNTER → 2022-06-10 13:14 | Outpatient (BNVA) | payer MEDICAID, SELFPAY | PROVIDERS: PCP Family Medicine; Visit Provider Nurse Practitioner Family | DX: Z96.642 Presence of left artificial hip joint (principal) | CPT/HCPCS: 73502; 99024; 99213 ==

== ENCOUNTER → 2022-12-31 10:41 | Outpatient (BNVA) | payer MEDICAID, SELFPAY | PROVIDERS: PCP Family Medicine; Visit Provider Family Medicine | DX: J30.9 Allergic rhinitis, unspecified (principal); M51.16 Intervertebral disc disorders with radiculopathy, lumbar region; K74.60 Unspecified cirrhosis of liver; Z13.220 Encounter for screening for lipoid disorders; Z13.6 Encounter for screening for cardiovascular disorders; M79.7 Fibromyalgia; G89.4 Chronic pain syndrome; Z13.1 Encounter for screening for diabetes mellitus; H10.11 Acute atopic conjunctivitis, right eye | CPT/HCPCS: 80053; 80061; 82105; 85007; 85027 ==

== ENCOUNTER → 2023-04-06 08:31 | Outpatient (BNVA) | payer MEDICAID, SELFPAY | PROVIDERS: PCP Family Medicine; Referring Provider Family Medicine; Visit Provider Family Medicine | DX: M19.012 Primary osteoarthritis, left shoulder (principal); M75.32 Calcific tendinitis of left shoulder; M25.512 Pain in left shoulder; M25.511 Pain in right shoulder | CPT/HCPCS: 73030 ==

== ENCOUNTER → 2023-05-13 12:59 | Outpatient (BNVA) | payer MEDICAID, SELFPAY | PROVIDERS: PCP Family Medicine; Referring Provider Family Medicine; Visit Provider Nurse Practitioner | DX: M25.511 Pain in right shoulder (principal); M25.512 Pain in left shoulder; M75.21 Bicipital tendinitis, right shoulder; M75.22 Bicipital tendinitis, left shoulder; M54.12 Radiculopathy, cervical region; M62.838 Other muscle spasm | CPT/HCPCS: 20610; 99214; J1100; J2795; J3301 ==

== ENCOUNTER → 2023-07-31 07:48 | Outpatient (BNVA) | payer MEDICAID, SELFPAY | PROVIDERS: PCP Family Medicine; Visit Provider Nurse Practitioner | DX: M19.011 Primary osteoarthritis, right shoulder; M19.012 Primary osteoarthritis, left shoulder; M75.21 Bicipital tendinitis, right shoulder; M75.22 Bicipital tendinitis, left shoulder; M54.12 Radiculopathy, cervical region; M62.838 Other muscle spasm | CPT/HCPCS: 20610; J1100; J2795; J3301 ==

== ENCOUNTER → 2023-09-30 08:24 | Outpatient (BNVA) | payer MEDICAID, SELFPAY | PROVIDERS: PCP Family Medicine; Visit Provider Family Medicine | DX: M25.561 Pain in right knee; M17.11 Unilateral primary osteoarthritis, right knee | CPT/HCPCS: 73562 ==

== ENCOUNTER → 2023-11-06 07:37 | Outpatient (BNVA) | payer MEDICAID, SELFPAY | PROVIDERS: PCP Family Medicine; Visit Provider Nurse Practitioner | DX: M19.011 Primary osteoarthritis, right shoulder (principal); M19.012 Primary osteoarthritis, left shoulder; M75.21 Bicipital tendinitis, right shoulder; M75.22 Bicipital tendinitis, left shoulder; M54.12 Radiculopathy, cervical region; M62.838 Other muscle spasm | CPT/HCPCS: 20610; J1100; J2795; J3301 ==

== ENCOUNTER → 2023-12-22 15:01 | Outpatient (BNVA) | payer MEDICAID, SELFPAY | PROVIDERS: PCP Family Medicine; Visit Provider Family Medicine | DX: Z13.6 Encounter for screening for cardiovascular disorders (principal); Z13.1 Encounter for screening for diabetes mellitus; I10 Essential (primary) hypertension; K74.60 Unspecified cirrhosis of liver; M79.7 Fibromyalgia; M51.16 Intervertebral disc disorders with radiculopathy, lumbar region; G89.4 Chronic pain syndrome | CPT/HCPCS: 80053; 80061; 83735; 85651; 86038; 86140 ==

== ENCOUNTER → 2024-01-15 07:30 | Outpatient (BNVA) | payer MEDICAID, SELFPAY | PROVIDERS: PCP Family Medicine; Visit Provider Nurse Practitioner | DX: M19.011 Primary osteoarthritis, right shoulder (principal); M19.012 Primary osteoarthritis, left shoulder; M54.12 Radiculopathy, cervical region; M62.838 Other muscle spasm; M75.21 Bicipital tendinitis, right shoulder; M75.22 Bicipital tendinitis, left shoulder | CPT/HCPCS: 20610; J1100; J2795; J3301 ==

== ENCOUNTER 2024-03-14 15:42 | Outpatient (CLI) | payer MEDICAID, SELFPAY ==
--- NOTE | 2024-03-14 15:47 | XRR_ITS ---
PROCEDURE INFORMATION: Exam: XR Lumbosacral Spine Exam date and time: 03/14/2024 3:53 PM Age: 59 years old Clinical indication: Low back pain; Prior surgery; Surgery date: 6+ months; Surgery type: L1-2-3; Additional info: Postlaminectomy syndrome TECHNIQUE: Imaging protocol: Radiologic exam of the lumbosacral spine. Views: 2 or 3 views. COMPARISON: OT XR lumbar spine 1V [id number] 02/07/2022 9:17 AM FINDINGS: Bones/joints: Stable mild anterior compression fractures of T12 and L1. No subluxations. Degenerative arthritis. No limitation of motion on the flexion and extension views. Soft tissues: Unremarkable. XR/XR lumbar spine f/e only [id number] IMPRESSION: No acute findings.
== END 2024-03-14 15:43 | disposition home or self-care (01) ==
LOC: RAD 15:44
PROVIDERS: PCP Family Medicine; Visit Provider Nurse Practitioner
DX: M96.1 Postlaminectomy syndrome, not elsewhere classified (principal)
CPT/HCPCS: 72120

== ENCOUNTER 2024-03-23 10:21 | Outpatient (CLI) | payer MEDICAID, SELFPAY ==
[2024-03-24 15:34] LABS: Anti-Nuclear Antibody Screen NEGATIVE (NEGATIVE)
== END 2024-03-23 10:22 | disposition home or self-care (01) ==
LOC: LAB 10:22
PROVIDERS: PCP Family Medicine; Visit Provider Family Medicine
DX: K74.60 Unspecified cirrhosis of liver (principal); M79.7 Fibromyalgia; M51.16 Intervertebral disc disorders with radiculopathy, lumbar region; Z13.6 Encounter for screening for cardiovascular disorders; Z13.1 Encounter for screening for diabetes mellitus; G89.4 Chronic pain syndrome
CPT/HCPCS: 36415; 86038

== ENCOUNTER → 2024-04-18 08:40 | Outpatient (BNVA) | payer MEDICAID, SELFPAY | PROVIDERS: PCP Family Medicine; Visit Provider Nurse Practitioner | DX: M19.011 Primary osteoarthritis, right shoulder (principal); M19.012 Primary osteoarthritis, left shoulder; M75.21 Bicipital tendinitis, right shoulder; M75.22 Bicipital tendinitis, left shoulder; M54.12 Radiculopathy, cervical region; M62.838 Other muscle spasm | CPT/HCPCS: 20610; 99214; J1100; J2795; J3301 ==

== ENCOUNTER → 2024-05-03 09:35 | Outpatient (BNVA) | payer MEDICAID, SELFPAY | PROVIDERS: PCP Family Medicine; Referring Provider Family Medicine; Visit Provider Family Medicine | DX: I10 Essential (primary) hypertension (principal); K74.60 Unspecified cirrhosis of liver; M79.7 Fibromyalgia; M51.16 Intervertebral disc disorders with radiculopathy, lumbar region; Z13.6 Encounter for screening for cardiovascular disorders; Z13.1 Encounter for screening for diabetes mellitus; G89.4 Chronic pain syndrome | CPT/HCPCS: 80053; 80061; 83735; 85651; 86140 ==

== ENCOUNTER → 2024-06-23 09:08 | Outpatient (BNVA) | payer MEDICAID, SELFPAY | PROVIDERS: PCP Family Medicine; Visit Provider Family Medicine | DX: M25.551 Pain in right hip (principal); G89.29 Other chronic pain; M16.11 Unilateral primary osteoarthritis, right hip; Z98.890 Other specified postprocedural states | CPT/HCPCS: 73502 ==

== ENCOUNTER → 2024-06-30 10:00 | Outpatient (BNVA) | payer MEDICAID, SELFPAY | PROVIDERS: PCP Family Medicine; Visit Provider Orthopaedic Surgery | DX: M16.11 Unilateral primary osteoarthritis, right hip (principal); M53.3 Sacrococcygeal disorders, not elsewhere classified; G89.29 Other chronic pain | CPT/HCPCS: 73502; 99214 ==

== ENCOUNTER 2024-07-07 08:51 | Outpatient (CLI) | payer MEDICAID, SELFPAY ==
--- NOTE | 2024-07-07 09:00 | US_ITS ---
WS: [id number] Complete ABDOMINAL ULTRASOUND HISTORY: K74.60 - Unspecified cirrhosis of liver COMPARISON: None available. Liver: 13.7 cm in length. Normal size liver. There is very minimal early nodularity along the liver surface. No hepatic mass or bile duct dilatation. Portal Vein: Normal hepatopetal flow with monophasic waveform. Gallbladder: Normally distended gallbladder with no stones or wall thickening. CBD: 0.3 cm Pancreas: Normal size and echogenicity. Right kidney: 10.5 cm x 4.5 x 4.5 cm. Cortex:1.1 cm. Normal size kidney. Cortical cyst upper pole 1.5 x 1.3 x 1.2 cm. No hydronephrosis or obstruction. Left kidney: 11.0 cm x 5.3 cm x 4.9 cm. Cortex: 1.0 cm. Cortical cyst upper pole 2.7 x 2.1 x 2.5 cm. Cortical cyst lower pole 2.2 x 2.2 x 2.0 cm. No obstruction. No solid mass. Spleen: 10.9 cm. Normal size and echogenicity. Aorta and IVC: Unremarkable abdominal aorta and IVC. US/US abdomen complete* [id number] Impression: 1. Normal gallbladder. 2. Very minimal surface nodularity of the liver. This may indicate early cirrh otic changes. No hepatic mass. 3. Bilateral renal cysts as above.
== END 2024-07-07 08:52 | disposition home or self-care (01) ==
PROVIDERS: PCP Family Medicine; Visit Provider Family Medicine
DX: K74.60 Unspecified cirrhosis of liver (principal); B18.2 Chronic viral hepatitis C; F10.20 Alcohol dependence, uncomplicated; N28.1 Cyst of kidney, acquired
CPT/HCPCS: 76700

== ENCOUNTER 2024-07-25 08:07 | Outpatient (CLI) | payer MEDICAID, SELFPAY ==
[2024-07-25 09:28] LABS: Bilirubin Urine 1+ (Negative); Blood Urine Negative (Negative); Glucose Urine UA Negative (Normal); Ketones Urine Trace (Negative); Leukocyte Esterase Urine Trace (Negative); Nitrate Urine Negative (Negative); Protein Urine Trace (Negative); Specific Gravity, Urine 1.021 (1.005-1.030); Urine Appearance Clear (CLEAR); Urine Color Dark Yellow (Yellow)
[2024-07-25 09:30] LABS: Add Urine Microscopic? YES; Bacteria Urine None Seen /hpf; Hyaline Casts Urine 7.85 /lpf; RBC Urine 0-2 /hpf (0-2); Squamous Epithelial Cell Urine 0-5 /hpf (0-5); WBC Urine 0-5 /hpf (0-5)
[2024-07-25 09:30] LABS: Basophils # 0.1 10^3/uL (0.0-0.1); Basophils % 0.9 %; Eosinophils # 0.1 10^3/uL (0.0-0.8); Eosinophils % 1.8 %; Lymphocytes % 36.4 %; Mean Corpuscular HGB Conc 32.4 g/dL (30-55); Mean Corpuscular Hemoglobin 30.5 pg (27-33); Mean Platelet Volume 10.7 fL (7.4-10.4); Monocytes # 0.5 10^3/uL (0.2-0.9); Monocytes % 9.2 %; Neutrophils # 2.84 10^3/uL (1.8-7.7); Neutrophils % 51.5 %; Nucleated Red Blood Cells % 0 %; Platelet Count 149 10^3/cmm (157-399); Red Blood Count 5.21 10^6/uL (3.85-5.65); Red Cell Distribution Width 13.2 % (12.1-15.1); White Blood Count 5.52 10^3/uL (3.29-11.43)
[2024-07-25 09:47] LABS: Alanine Aminotransferase 14 U/L (0-41); Albumin Level 4.5 g/dL (3.5-5.2); Alkaline Phosphatase 59 U/L (40-130); Blood Urea Nitrogen 18 mg/dL (6-20); Calcium 9.1 mg/dL (8.5-10.5); Carbon Dioxide 22 mmol/L (22-29); Chloride 104 mmol/L (98-107); Globulin 2.4 g/dL (1.3-4.6); Glomerular Filtration Rate 98.9 mL/min (90-130); Glucose 90 mg/dL (65-115); Osmolality Calculated 287 mOsm/kg (285-295); Sodium 138 mmol/L (136-145); Total Bilirubin 0.4 mg/dL (0.15-1.2); Total Protein 6.9 g/dL (6.6-8.7)
[2024-07-25 09:47] LABS: UA Slide Review UA Slide Review Perf
[2024-07-25 09:50] LABS: Anion Gap 16.6 (5-19); Aspartate Amino Transferase 19 U/L (0-40); Potassium 4.6 mmol/L (3.5-5.1)
== END 2024-07-25 08:08 | disposition home or self-care (01) ==
LOC: LAB 08:09
PROVIDERS: PCP Family Medicine; Visit Provider Nurse Practitioner
DX: M16.11 Unilateral primary osteoarthritis, right hip (principal)
CPT/HCPCS: 36415; 80053; 81001; 85025

== ENCOUNTER → 2024-08-08 13:00 | Outpatient (BNVA) | payer MEDICAID, SELFPAY | PROVIDERS: PCP Family Medicine; Visit Provider Family Medicine | DX: Z01.818 Encounter for other preprocedural examination (principal) | CPT/HCPCS: 85025 ==

== ENCOUNTER 2024-08-11 11:05 | Observation (INO) | payer MEDICAID, SELFPAY ==
[2024-08-11] VITALS (30 sets, daily range): BP systolic 86–114; BP diastolic 63–86; PULSE 61–119; RESP 10–24; TEMP 36.1–36.8; O2SAT 90–100; BMI 28.5
[2024-08-11] MEDS: sodium chloride 0.9% 1,000 ML 30 ML IV (06:33)
[2024-08-11] MEDS: gabapentin 300 mg Capsule PO (06:36)
[2024-08-11] MEDS: CELEcoxib 200 mg Capsule 400 MG PO (06:37)
--- NOTE | 2024-08-11 07:00 | W.PM.OPSUD ---
Surgery/Procedure H&P Update DATE OF PROCEDURE: August 11, 2024 DATE H&P PERFORMED: 08/08/24 H&P UPDATE INFORMATION: I have reviewed H&P completed within last 30 days, I have examined patient prior to procedure, No changes to prior documentation, H&P is in [facility] EMR on date indicated and Risks and benefits of the procedure reviewed PREOP DIAGNOSIS: Primary osteoarthritis right hip PLANNED PROCEDURE: Operation Date: 08/11/24 07:50 Proposed Procedures p Total Hip Arthroplasty(Right) - Kathleen Faustin MD Related Problem List Diagnoses (1) Unilateral primary osteoarthritis, right hip:
--- NOTE | 2024-08-11 07:26 | ANES.PREANE2 ---
Pre-Anesthetic Assessment Height/Weight: Height 5 ft 4 in Weight 166 lb Temp Pulse Resp BP Pulse Ox O2 Del Method 97.6 F 61 18 106/66 95 Room Air 08/11/24 06:12 08/11/24 06:12 08/11/24 06:12 08/11/24 06:12 08/11/24 06:12 08/11/24 06:12 Preop Diagnosis: Primary osteoarthritis right hip Operation Date: 08/11/24 07:50 Proposed Procedures p Total Hip Arthroplasty(Right) - Kathleen Faustin MD Was Beta Amee taken within 24 hours: N/A Was Clonidine taken within 24 hours: N/A Last intake: Intake Last Liquid Date 08/10/24 Last Liquid Time 22:00 Last Solid Date 08/10/24 Last Solid Time 22:00 Social Tobacco and No tobacco Exam alert, oriented x 3, clear to auscultation bilaterally and regular rate & rhythm Airway Submandibular: within normal limits Cervical ROM: within normal limits Mallampati: Class II Comments: Comments: Edentulous Anesthetic Plan ASA status: 3 Anesthesia: General Other: No prior issues with anesthesia in the past NPO since yesterday evening Current smoker Hepatitis C with cirrhosis Labs reviewed and acceptable for procedure. Mild thrombocytopenia noted Patient states his mobility is limited to pain Plan for general anesthesia Medications/Allergies Home Medications ?Medication ?Instructions ?Recorded ?Confirmed ?Last Taken ?Type diclofenac sodium 1 % topical gel 4 g topical BID PRN pain #100 grams 12/22/23 08/10/24 08/08/24 Rx (Arthritis Pain (diclofenac)) diclofenac sodium 75 mg 75 mg PO BID 30 days #60 tabs 06/23/24 08/10/24 08/08/24 Rx tablet,delayed release tizanidine 4 mg tablet 4 mg PO TID PRN muscle spasticity 06/23/24 08/10/24 08/10/24 Rx 30 days #90 tabs hydrocodone 5 mg-ibuprofen 200 mg 1 tab PO BID pain 08/10/24 08/10/24 08/10/24 History tablet Allergies Allergy/AdvReac Type Severity Reaction Status Date / Time acetaminophen (From Tylenol) Allergy Intermediate Unknown Verified 08/08/24 12:29 Current Medications Generic Name Dose Route Start Last Admin Trade Name Freq PRN Reason Stop Dose Admin Sodium Chloride 1,000 mls @ 30 mls/hr 08/11/24 06:15 04/10/25 06:33 Sodium Chloride 0.9% IV 08/12/24 06:14 30 mls/hr .Q24H CHARIOT Administration PFSH Anesthesia Medical History Chronic SI joint pain Unilateral primary osteoarthritis, right hip Chronic pain Osteoarthritis of shoulders, bilateral Trapezius muscle spasm Cervical radicular pain Biceps tendonitis of both shoulders Advanced cirrhosis of liver Surgical History History of appendectomy Family History Father Cancer Social History Smoking and tobacco/nicotine status: never used tobacco/nicotine Alcohol intake: former Year of sobriety/quit date alcohol: 11/21 Substance/Drug Use: never Data Anesthesia Cardiac Studies: No Data to Display
[2024-08-11] MEDS: ceFAZolin 2,000 mg SDV 2000 MG IVP ×2 (08:00→16:30)
[2024-08-11] MEDS: tranexamic acid 1,000 mg/10mL SDV 1000 MG IV (08:39)
[2024-08-11] MEDS: ceFAZolin 1,000 mg SDV 1000 MG IRRIGATION (09:12)
[2024-08-11] MEDS: BUPivacaine 0.5% INJ 30 mL 20 ML INJECTION (09:12)
[2024-08-11] MEDS: BUPivacaine liposome 13.3 mg/mL SDV 20 mL 266 MG INFILTRATI (09:13)
[2024-08-11] MEDS: sodium chloride 0.9% 50 mL Bag XX (09:14)
[2024-08-11] MEDS: VANCOMYCIN ADD-Vantage 1,000 MG VIAL 1000 MG (09:14)
--- NOTE | 2024-08-11 10:51 | XR_ITS ---
WS: [id number] Exam: XR pelvis 1-2V* [id number] Date/Time of Exam: 08/11/2024 11:12 AM Reason For Exam: Status post right total hip arthroplasty Comparison 06/30/2024. RIGHT total hip arthroplasty is in excellent position. Postoperative changes in the adjacent soft tissues. Also noted is total LEFT hip replacement which appears to be intact XR/XR pelvis 1-2V* [id number] IMPRESSION: 1. RIGHT total hip replacement as noted above.
--- NOTE | 2024-08-11 10:51 | P.OP_ITS ---
Operative Report Date of procedure: August 11, 2024 Pre-op diagnosis: Primary osteoarthritis right hip Post-op diagnosis: Primary osteoarthritis right hip Post-op findings: Severe degenerative osteoarthritic changes right hip Procedure done: Right total hip arthroplasty Implants: The [employer] total hip system with the following implants: A 54 mm Trident II solid back acetabular shell with an E Alpha code, an MDM cementless liner 42 mm inner diameter by E alpha code and Accolade II size 7 with 127 degree neck angle hip stem with a 28 mm outer diameter +0 mm neck offset and a muslim X3 insert size 28 mm inner diameter by 42E Specimens removed/disposition: Femoral head, disposed of Pathology: None Surgeon: Kathleen Faustin MD Scrap Drop Crane Operator: Charito Smith, nurse practitioner, who services were required for positioning, exposure, retraction, and closure. Estimated blood loss (mL): 400 IV fluids (mL): 1,400 Urine output (mL): 250 Complications: None Findings: Severe degenerative osteoarthritis with osteopenia primarily of the acetabulum. The hip was stable at 90 degrees of flexion with 90 degrees of internal rotation and 30 degrees of adduction. It was also stable to external rotation and toe hang. Condition: stable Disposition: PACU (Then transferred to the floor under observation status for postoperative rehabilitation and pain management) Brief History: This 59-year-old gentleman presented to the clinic for evaluation of his right hip pain. Previously, he had had a left total hip arthroplasty which had been very successful for him. He wished to proceed with right total hip arthroplasty. Risks and complications were discussed with him preoperatively. He had a preoperative workup with Dr. Hebert and is known to be hep C positive. Risks and complications of surgery were discussed with him. Consents were signed preoperatively and reviewed on the day of surgery. Questions were answered when he was seen in the preoperative holding area. The hip was marked there as well. Procedure: Patient was brought to the operating theater.? He was transferred to the operating room table.? The patient had a general anesthetic intubated, ASA 3 une ventfully.? Following administration of adequate anesthesia, the patient was placed in full lateral position and held in position with a pegboard.? The patient's right lower extremity was then prepped and draped in usual fashion utilizing DuraPrep.? It was draped free.? Following prepping and draping, a surgical pause was performed. At the time of surgical pause, we identified the site and side of surgery.? We also identified the patient and preoperative surgical markings.? Confirmation was made of equipment availability.? Additionally, the patient's preoperative IV antibiotic, Ancef 2 g was confirmed as being given in a timely fashion and being the appropriate antibiotic.? She received TXA 1 g preoperatively as well 1 g postoperatively. Following the surgical pause, an incision was made centering over the patient's greater trochanter continuing proximally and distally as necessary to allow access to the hip joint.? Dissection continued through skin and soft tissues using a scalpel, and hemostasis was obtained using electrocautery. The tensor fascia surya was identified and incised longitudinally.? Sciatic nerve was identified and protected throughout the surgical procedure.? A Charnley U retractor was placed after the tensor fascia surya had been incised longitudinally, and the sciatic nerve had been identified.? The piriformis muscle was identified and tagged. Piriformis muscle along with the remaining short external rotators were then incised from the posterior aspect of the hip joint. These were retracted posteriorly. ? The capsule was entered in a T-type fashion with the edges being tagged.? The hip was then dislocated.? Following hip dislocation, a femoral neck osteotomy was accomplished in the appropriate position.? We then evaluated the acetabulum. Following femoral neck osteotomy, the femur was retracted anteriorly.? Soft tissues were retracted, and the labrum was removed.? Soft tissues were removed from within the acetabulum prior to the reaming process.? We then began reaming.? We deepened the acetabulum utilizing a smaller reamer.? Evaluation of the acetabulum was accomplished, and we were able to ream to 53 mm to allow for a size 54 mm acetabular shell. The acetabular component was impacted into position.? It was noted that the acetabular component matched the bony anatomy.? The MDM cementless liner was impacted into position and care was taken to assure that it completely seated.? Attention was directed to the proximal femur.? The proximal femur was lifted out of the wound with difficulty.? A canal finder was passed, and we then used the reamer to lateralize.? We then began broaching. We broached sequentially and a size 7 gave excellent fit and fill.? With the size 7 broach, trial reduction was accomplished initially with a size +0 mm offset femoral head.? The patient was stable with this construct.? With this in place, we had the above stabilities, and at that time, we felt that we had restored normal leg lengths.? We also felt that we had excellent stability noted above. Therefore, trial components were removed after the hip was dislocated.? The size 7 Accolade II 127 degree neck angle hip stem was impacted into position without difficulty and onto this was placed a +0 mm offset by 28 mm outer diameter femoral head inside of the MDM size 42E insert with a 28 mm inner diameter.? With this construct, we had the above-noted stability.? The stem was noted to seat nicely prior to placement of the femoral head.? The wound was copiously irrigated with Betadine.? At this time, with all components in appropriate position, the hip was reduced.? Following reduction of the prosthesis once again, we confirmed the stability of the hip.? Leg lengths were also felt to be satisfactory. Being satisfied with the prosthesis, attention was directed to closure.? Exparel was injected in the soft tissue surrounding the hip. Closure was accomplished with 0 Vicryl in the capsular tissues.? Piriformis was reattached with 0 Vicryl as well.? Tensor fascia surya was closed with 0 Vicryl in an interrupted fashion.? The subcutaneous tissues were closed with 2-0 STRATAFIX.? Vancomycin powder and a Gelfoam thrombin mixture was placed into the wound as well.? The skin was closed with 3-0 STRATAFIX followed by Dermabond, Prineo, and OpSite.? The patient was placed in an abduction pillow.?The patient was then rolled onto his back. He was returned the Recovery Room in a satisfactory condition and will be discharged to the floor for postoperative rehabilitation and pain management.? There were no complications. Related Problem List Diagnoses (1) Unilateral primary osteoarthritis, right hip:
[2024-08-11] MEDS: fentaNYL 50 mcg/mL INJ 2mL IVP ×2 (11:21→11:33)
[2024-08-11] MEDS: HYDROmorphone 1 mg/mL INJ 1ml 0.5 MG IVP ×2 (11:43→11:55)
--- NOTE | 2024-08-11 12:15 | PC.NURSE ---
Patient taken to Room 269 via bed accompanied by signee and DEVONTE Fields. VS 97.4, HR 82, RR 18, BP 92/66, 02 sat 100 on room air. DEVONTE Castillo at bedside.
--- NOTE | 2024-08-11 12:15 | ANE.PACU2 ---
Inpatient post-anesthesia follow up: Airway intact: Yes Vital signs: Temperature 97.4 F Pulse Rate 65 Respiratory Rate 15 Blood Pressure 86/63 Pulse Oximetry 93 Oxygen Delivery Me thod Room Air Oxygen Flow Rate 10 Fraction of Inspir ed Oxygen Hydration adequate: Yes Nausea and vomiting: No Pain level: 1 Mental status: Baseline
[2024-08-11] MEDS: gabapentin 300 mg Capsule 600 MG PO (12:50)
[2024-08-11] MEDS: chlorhexidine gluconate 0.12% Btl 473 mL 30 ML MUCOUS MEM ×3 (12:51→20:08)
[2024-08-11] MEDS: oxyCODONE 5 mg IR Tab/Cap PO ×3 (14:07→23:16)
[2024-08-11] MEDS: nicotine 4 mg lozenge MUCOUS MEM ×2 (16:13→18:16)
[2024-08-11] MEDS: calcium carbonate 500 mg Chew Tablet 1000 MG PO (17:27)
[2024-08-11] MEDS: sennosides-docusate Tablet 2 TAB PO (17:27)
[2024-08-11] MEDS: diclofenac 75 mg DR Tablet PO (17:28)
[2024-08-11] MEDS: mupirocin oint 22 gm 1 APPLIC NASAL (17:28)
[2024-08-11] MEDS: iron polysaccharide complex 150 mg Capsule PO (17:28)
[2024-08-12] MEDS: ceFAZolin 2,000 mg SDV 2000 MG IVP ×2 (00:03→09:02)
[2024-08-12 04:02] VITALS: BP 104/68; PULSE 92; RESP 18; TEMP 36.5; O2SAT 92
[2024-08-12 04:47] VITALS: RESP 17
[2024-08-12] MEDS: oxyCODONE 5 mg IR Tab/Cap PO ×2 (04:47→10:43)
[2024-08-12 05:30] LABS: Basophils % 0.1 %; Hematocrit 35.7 % (37-53); Lymphocytes # 1.2 10^3/uL (0.8-4.8); Lymphocytes % 9.6 %; Mean Corpuscular HGB Conc 33.1 g/dL (30-55); Mean Corpuscular Hemoglobin 29.9 pg (27-33); Mean Corpuscular Volume 90.6 fl (82-101); Mean Platelet Volume 11.3 fL (7.4-10.4); Monocytes # 0.8 10^3/uL (0.2-0.9); Monocytes % 6.9 %; Neutrophils # 10.06 10^3/uL (1.8-7.7); Nucleated Red Blood Cells % 0 %; Platelet Count 109 10^3/cmm (157-399); Red Blood Count 3.94 10^6/uL (3.85-5.65); Red Cell Distribution Width 12.9 % (12.1-15.1); White Blood Count 12.13 10^3/uL (3.29-11.43)
[2024-08-12 05:55] LABS: Blood Urea Nitrogen 22 mg/dL (6-20); Calcium 8.8 mg/dL (8.5-10.5); Carbon Dioxide 23 mmol/L (22-29); Chloride 103 mmol/L (98-107); Glomerular Filtration Rate 86.4 mL/min (90-130); Glucose 134 mg/dL (65-115); Osmolality Calculated 289 mOsm/kg (285-295); Sodium 137 mmol/L (136-145)
[2024-08-12 06:02] LABS: Anion Gap 15.3 (5-19); Potassium 4.3 mmol/L (3.5-5.1)
[2024-08-12 07:57] VITALS: BP 123/75; PULSE 84; RESP 18; TEMP 36.9; O2SAT 93
[2024-08-12] MEDS: tizanidine 4 mg Tablet PO (09:01)
[2024-08-12] MEDS: calcium carbonate 500 mg Chew Tablet 1000 MG PO (09:02)
[2024-08-12] MEDS: cholecalciferol (vitamin D3) 1,000 unit Tablet 1000 UNIT PO (09:02)
[2024-08-12] MEDS: sennosides-docusate Tablet 2 TAB PO (09:02)
[2024-08-12] MEDS: iron polysaccharide complex 150 mg Capsule PO (09:02)
[2024-08-12] MEDS: aspirin 325 mg EC Tablet PO (09:02)
[2024-08-12] MEDS: diclofenac 75 mg DR Tablet PO (09:02)
[2024-08-12] MEDS: nicotine 4 mg lozenge MUCOUS MEM (09:02)
[2024-08-12] MEDS: multivitamin therapeutic Tablet 1 TAB PO (09:02)
[2024-08-12 10:43] VITALS: RESP 16
[2024-08-12 12:00] VITALS: BP 106/70; PULSE 72; RESP 18; TEMP 36.6; O2SAT 94
--- NOTE | 2024-08-12 12:52 | PM.DCS ---
Discharge Providers Date of Admission: 08/11/24 11:05 Date of Discharge: August 12, 2024 Attending Provider at Admission: Kathleen Faustin MD Attending Provider at Discharge: Kathleen Faustin MD Primary Care Provider: Isabela Bolden MD Diagnoses at Discharge Discharge Diagnosis (1) Unilateral primary osteoarthritis, right hip: Status: Chronic (2) History of total right hip arthroplasty: Status: Acute Permanent problem details: Date of procedure: August 11, 2024 Diagnosis: Primary osteoarthritis right hip Procedure done: Right total hip arthroplasty Implants: The [employer] total hip system with the following implants: A 54 mm Trident II solid back acetabular shell with an E Alpha code, an MDM cementless liner 42 mm inner diameter by E alpha code and Accolade II size 7 with 127 degree neck angle hip stem with a 28 mm outer diameter +0 mm neck offset and a hinduism X3 insert size 28 mm inner diameter by 42E Reason for Visit Reason for Visit: M16.11 Brief History: This 59-year-old gentleman presented to the clinic for evaluation of his right hip pain. Previously, he had had a left total hip arthroplasty which had been very successful for him. He wished to proceed with right total hip arthroplasty. Risks and complications were discussed with him preoperatively. He had a preoperative workup with Dr. Hebert and is known to be hep C positive. Risks and complications of surgery were discussed with him. Consents were signed preoperatively and reviewed on the day of surgery. Questions were answered when he was seen in the preoperative holding area. The hip was marked there as well. Hospital Course Hospital Course Patient was admitted under observation status following right total hip arthroplasty. He has prior left total hip arthroplasty. He is weightbearing as tolerated and has done well. He will be discharged to home to follow-up in the office as previously scheduled. Dressing is dry and intact. There is minimal to no swelling within the leg. There is no evidence of DVT. Patient will be discharged home the day following surgery. Physical Exam Const: COMMON NORMALS: no acute distress, average body habitus, patient oriented x3 and alert GENERAL APPEARANCE: cooperative and comfortable ORIENTATION/CONSCIOUSNESS: Yes awake HENMT: COMMON NORMALS: normocephalic and atraumatic HEAD & SCALP: normocephalic and atraumatic Eye: GENERAL EYE: appearance normal, both eyes and all related structures Chest: COMMONS NORMALS: normal inspection of the chest Resp: COMMON NORMALS: normal respiratory effort EFFORT & INSPECTION: Yes able to speak in complete sentences and Yes symmetric chest movement Extremity: RIGHT LOWER EXTREMITY: Yes hip joint (Dressing dry and intact) Right hip: Yes inspection (No significant ecchymosis), Yes palpation (Minimal tenderness), Yes ROM (Not evaluated) and Yes neurovascular exam (Intact distally with no evidence of DVT) Neuro: COMMON NORMALS: patient oriented x3 SENSORIUM/ORIENTATION: Yes alert Psych: COMMON NORMALS: mental status grossly normal APPEARANCE: Yes grossly normal ATTITUDE: Yes calm and Yes engaged ATTENTION/CONCENTRATION: Yes attention grossly intact Skin: COMMON NORMALS: no rashes or lesions noted GENERAL SKIN EXAM: no rashes or lesions noted Urinary Catheter Management: Melendez: Cath Placed During This Visit: yes Reason for Continuing Indwelling Catheter: Perioperative Use in Selected Surgeries Urinary Catheter Date of Insertion: 08/11/24 Urinary Catheter Time of Insertion: 08:45 Discharge Data Studies Completed and Pending Completed Studies During Hospitalization Category Date Time Status XR pelvis 1-2V* [id number] Routine Exams 08/11/24 10:51 Completed Radiology Impressions Pelvis X-Ray 08/11/24 10:51 IMPRESSION: 1. RIGHT total hip replacement as noted above. Laboratory Results WBC 12.13 10^3/uL (3.29-11.43) H 08/12/24 04:35 RBC 3.94 10^6/uL (3.85-5.65) 08/12/24 04:35 Hgb 11.80 g/dL (11.27-16.99) 08/12/24 04:35 Hct 35.7 % (37-53) L 08/12/24 04:35 MCV 90.6 fl (82-101) 08/12/24 04:35 MCH 29.9 pg (27-33) 08/12/24 04:35 MCHC 33.1 g/dL (30-55) 08/12/24 04:35 RDW 12.9 % (12.1-15.1) 08/12/24 04:35 Plt Count 109 10^3/cmm (157-399) L 08/12/24 04:35 MPV 11.3 fL (7.4-10.4) H 08/12/24 04:35 Neut % (Auto) 83.0 % 08/12/24 04:35 Lymph % (Auto) 9.6 % 08/12/24 04:35 Terrell % (Auto) 6.9 % 08/12/24 04:35 Eos % (Auto) 0.0 % 08/12/24 04:35 Baso % (Auto) 0.1 % 08/12/24 04:35 Neut # (Auto) 10.06 10^3/uL (1.8-7.7) H 08/12/24 04:35 Lymph # (Auto) 1.2 10^3/uL (0.8-4.8) 08/12/24 04:35 Terrell # (Auto) 0.8 10^3/uL (0.2-0.9) 08/12/24 04:35 Eos # (Auto) 0.0 10^3/uL (0.0-0.8) 08/12/24 04:35 Baso # (Auto) 0.0 10^3/uL (0.0-0.1) 08/12/24 04:35 Nucleated RBC % (auto) 0 % 08/12/24 04:35 Nucleated RBCs # 0.0 /100WBC 08/12/24 04:35 Sodium 137 mmol/L (136-145) 08/12/24 04:35 Potassium 4.3 mmol/L (3.5-5.1) 08/12/24 04:35 Chloride 103 mmol/L (98-107) 08/12/24 04:35 Carbon Dioxide 23 mmol/L (22-29) 08/12/24 04:35 Anion Gap 15.3 (5-19) 08/12/24 04:35 BUN 22 mg/dL (6-20) H 08/12/24 04:35 Creatinine 0.9 mg/dL (0.7-1.2) 08/12/24 04:35 GFR Calculation 86.4 mL/min (90-130) L 08/12/24 04:35 Glucose 134 mg/dL (65-115) H 08/12/24 04:35 Calculated Osmolality 289 mOsm/kg (285-295) 08/12/24 04:35 Calcium 8.8 mg/dL (8.5-10.5) 08/12/24 04:35 Vitals Last Vital Signs Temp 97.8 F 08/12/24 12:00 Pulse 72 08/12/24 12:00 Resp 18 08/12/24 12:00 BP 106/70 08/12/24 12:00 Pulse Ox 94 08/12/24 12:00 O2 Del Method Room Air 08/12/24 12:00 O2 Flow Rate 10 08/11/24 11:06 Discharge Plan Discharge Patient Disposition: Home Condition: Stable Prescriptions: New aspirin 325 mg Tablet,Delayed Release (Dr/Ec) 325 mg PO DAILY 30 Days Qty: 30 0RF oxycodone 5 mg Tablet 5 mg PO Q4H PRN (Reason: Moderate To Severe Pain) 7 Days Qty: 30 0RF Continued diclofenac sodium [Arthritis Pain (diclofenac)] 1 % gel 4 g topical BID PRN (Reason: pain) Qty: 100 5RF Rx Instructions: apply to single joint tizanidine 4 mg tablet 4 mg PO TID PRN (Reason: muscle spasticity) 30 Days Qty: 90 3RF diclofenac sodium 75 mg tablet,delayed release (DR/EC) 75 mg PO BID 30 Days Qty: 60 3RF Rx Instructions: WITH FOOD Discontinued hydrocodone-ibuprofen 5-200 mg tablet 1 tab PO BID Discharge Orders: Discharge Order (Routine); Ordered 08/12/24 Ordered By: Kathleen Faustin Referrals: Kathleen Faustin MD [Physician] - 08/29/24 9:45 am Discharge Diet: Advance as tolerated, Usual diet and As Directed Discharge Activity: Increase activity as tolerated, Limit activity as instructed, Use walker/crutches as instructed and As per PT/OT instructions Patient Instructions: Aspirin (By mouth), Oxycodone, Slow Release (By mouth), Acute Wound Care (DC), Total Hip Replacement (DC), Hip Abduction Pillow (DC), Post Anesthesia Care Activity Restrictions/Additional Instructions: Weight-bear as tolerated. Posterior hip precautions as instructed while in the hospital. You may shower, but do not soak your hip in water such as in bath water. Leave your dressing in place until you are seen in the office. Ice to right hip. Discharge Attestations Time Spent in Discharge Care*: greater than 30 min Specific Discharge Activities: educating patient, documenting/other paperwork and evaluating patient/reviewing data Quality Metrics Clinical Quality Measures [ No reported AMI, CVA or VTE this stay] Coding Level of Care Code Acute Code for Chg Fwd Diagnoses Unilateral primary osteoarthritis, right hip M16.11 History of total right hip arthroplasty Z96.641
[2024-08-12 13:01] VITALS: BP 106/70; PULSE 72; RESP 16; TEMP 36.6; O2SAT 72
== END 2024-08-12 13:00 | disposition home or self-care (01) ==
LOC: MEDSURG 11:06
PROVIDERS: Admitting Provider Specialist; PCP Family Medicine; Visit Provider Specialist
PROC: (CPT 27130; principal; 2024-08-11 07:50)
DX: M16.11 Unilateral primary osteoarthritis, right hip (principal); F17.200 Nicotine dependence, unspecified, uncomplicated; K74.60 Unspecified cirrhosis of liver; B19.20 Unspecified viral hepatitis C without hepatic coma
CPT/HCPCS: 27130; 36415; 51702; 72170; 80048; 85025; 97110; 97116; 97162; 97165; 97530; A4216; C1776; G0378; J0131; J0666; J0690; J1171; J2250; J2371; J2704; J3010; J3370; J3490; J7030; J9999

== ENCOUNTER → 2024-08-29 09:32 | Outpatient (BNVA) | payer MEDICAID, SELFPAY | PROVIDERS: PCP Family Medicine; Visit Provider Nurse Practitioner | DX: Z98.890 Other specified postprocedural states (principal); Z96.641 Presence of right artificial hip joint | CPT/HCPCS: 99024 ==

== ENCOUNTER 2024-09-01 05:00 | Outpatient (RCR) | payer MEDICAID, SELFPAY | END 2024-10-01 23:59 | disposition home or self-care (01) | LOC: MPT 05:00 | PROVIDERS: PCP Family Medicine; Visit Provider Nurse Practitioner | DX: M54.50 Low back pain, unspecified (principal); G89.29 Other chronic pain | CPT/HCPCS: 97110; 97161 ==

== ENCOUNTER → 2024-10-17 07:43 | Outpatient (BNVA) | payer MEDICAID, SELFPAY | PROVIDERS: PCP Family Medicine; Visit Provider Nurse Practitioner | DX: Z98.890 Other specified postprocedural states (principal); Z96.641 Presence of right artificial hip joint; G89.29 Other chronic pain | CPT/HCPCS: 73502; 99214 ==